=== PATIENT | born 2000 | race Caucasian/White ===

== ENCOUNTER 2025-05-09 14:59 | Emergency (ER) | payer MEDICAID | END 2025-05-09 18:02 | disposition home or self-care (01) | LOC: JP.ED 14:59 → EDSEX 14:59 → JP.ED 18:02 | DX: S46.911A Strain of unspecified muscle, fascia and tendon at shoulder and upper arm level, right arm, initial encounter (principal); W19.XXXA Unspecified fall, initial encounter | CPT/HCPCS: 73030-26-RT; 73030-RT; 99283 ==